=== PATIENT | female | born 1990 | race Caucasian/White ===

== ENCOUNTER 2020-01-17 15:18 | Emergency (ER) | payer MEDICAID, OTHER ==
[~2020-01-17] VITALS: Ht 165.1 cm; Wt 59.0 kg
[2020-01-17 15:31] VITALS: BP 104/65
[2020-01-17] MEDS ORDERED: cefTRIAXone SOD 500 MG VL IM ONE (16:00)
[2020-01-17 16:08] LABS: Urine Bacteria FEW /hpf (None Seen); Urine Blood 2+ /uL (Negative); Urine Mucus FEW (None Seen); Urine Specific Gravity 1.025 (1.001-1.035); Urine WBC 1299 /hpf (0 - 5); Urine WBC Clumps PRESENT /hpf (None Seen)
[2020-01-17] MEDS ORDERED: cefTRIAXone SOD 1,000 MG VL IM ONE (16:15)
== END 2020-01-17 17:00 | disposition home or self-care (01) ==
LOC: ER 15:18
DX: N39.0 Urinary tract infection, site not specified (principal); N76.0 Acute vaginitis; F17.200 Nicotine dependence, unspecified, uncomplicated; Z20.2 Contact with and (suspected) exposure to infections with a predominantly sexual mode of transmission
CPT/HCPCS: 81001; 81025; 96372; 99284; J0696